=== PATIENT | male | born 1990 | race Two or more races ===

== ENCOUNTER 2024-05-23 14:19 | Emergency (ER) | payer MEDICAID, SELFPAY ==
[2024-05-23] VITALS (9 sets, daily range): BP systolic 133–155; BP diastolic 80–94; PULSE 100–108; RESP 17–34; TEMP 37.1–38; O2SAT 94–98; BMI 36.2; BMI 34.2
--- NOTE | 2024-05-23 14:38 | XR_ITS ---
EXAMINATION: US gall bladder ORDERING PROVIDER: Wali RICE), COLOR COATER HISTORY: pain jaundice TECHNIQUE: Multiplanar still ultrasonography of the right upper quadrant was performed using grayscale imaging, supplemented by color and spectral Doppler as needed. COMPARISON: None. FINDINGS: Liver: Diffusely increased echogenicity. No focal lesions identified. Midclavicular craniocaudad length 21.2 cm. Nodular contour. Gallbladder: No intraluminal filling defect. Gallbladder wall measures up to 5 mm. No pericholecystic fluid. Biliary system: No biliary ductal dilatation. Common bile duct: 0.3 cm. Pancreas: Obscured by bowel gas and poor acoustic windows. Right kidney length: Not well-visualized. Vascular: Hepatofugal portal venous flow. Loss of hepatic venous triphasic waveform. Patent IVC. Other: No ascites or mass. IMPRESSION: 1. Gallbladder wall thickening without cholelithiasis or pericholecystic fluid. Differential includes chronic cholecystitis, sequelae of underlying liver disease, and sequelae of cardiac disease. 2. Enlarged, probably steatotic, cirrhotic liver with reversal of portal venous flow and dampening of hepatic venous waveforms.
--- NOTE | 2024-05-23 14:39 | PD.EDRME ---
Rapid Medical Screening Exam RME Arrival date/time: 05/23/24 14:19 34-year-old male presents to the emergency department today with complaints of being jaundice patient does admit to drinking alcohol heavily Chief Complaint: Extremity Problem,Nontraumatic Vital signs: Vital Signs Temperature 99.2 F 05/23/24 14:33 Pulse Rate 106 H 05/23/24 14:33 Respiratory Rate 22 H 05/23/24 14:33 Blood Pressure 152/91 H 05/23/24 14:33 Pulse Oximetry (%) 96 05/23/24 14:33 Oxygen Delivery Method Room Air 05/23/24 14:33
[2024-05-23 16:01] LABS: Basophils # (Auto) 0.1 Thou/mm3 (0.0-0.2); Basophils % (Auto) 1 % (0-2.5); Eosinophils # (Auto) 0.2 Thou/mm3 (0.0-0.5); Eosinophils % (Auto) 1 % (0-10); Hematocrit 31.8 % (41.0-53.0); Hemoglobin 11.6 g/dL (13.5-16.0); Immature Granulocytes % (Auto) 2 % (0-0); Immature Granulocytes Auto 0.48 Thou/mm3 (0.00-0.00); Lymphocytes # (Auto) 1.2 Thou/mm3 (1.0-4.8); Lymphocytes % (Auto) 5 % (10-50); Mean Corpuscular HGB Conc 36.5 g/dl (31.0-37.0); Mean Corpuscular Hemoglobin 37.8 pg (25.0-35.0); Mean Corpuscular Volume 104 fL (80-100); Monocytes # (Auto) 1.3 Thou/mm3 (0.0-0.8); Monocytes % (Auto) 6 % (0-12); Neutrophils # (Auto) 19.6 Thou/mm3 (1.8-7.7); Neutrophils % (Auto) 86 % (37-80); Nucleated Red Blood Cell # 0.03 Thou/mm3 (0.00-0.00); Nucleated Red Blood Cell % 0 /100 WBC (0); Platelet Count 258 Thou/mm3 (140-440); RDW Standard Deviation 93.4 fL (35.1-43.9); Red Blood Count 3.07 Miln/mm3 (4.50-5.90); White Blood Count 22.9 Thou/mm3 (3.8-10.6)
[2024-05-23 16:27] LABS: Ammonia 28 uMol/L (11-32)
[2024-05-23 16:36] LABS: INR 1.9 (0.9-1.3); Partial Thromboplastin Time 40.7 Seconds (22.0-36.0); Prothrombin Time 19.8 Seconds (9.0-12.2)
[2024-05-23 16:52] LABS: Alanine Aminotransferase 45 U/L (10-49); Albumin, Serum 2.8 gm/dL (3.5-5.0); Albumin/Globulin Ratio 0.5 (1.2-2.2); Alcohol, Blood Medical < 3.0 mg/dL (0-10.0); Alkaline Phosphatase 327 U/L (46-116); Anion Gap 8 (7-16); Aspartate Amino Transferase 208 U/L (0-34); BUN/Creatinine Ratio 8 Ratio (12-20); Blood Urea Nitrogen 8 mg/dL (9-23); Carbon Dioxide 25.3 mMol/L (20.0-31.0); Chloride 97 mMol/L (98-107); Estimated Creatinine Clearance 134.6 mL/min (>60); Glucose 118 mg/dL (74-106); Lipase 70 U/L (12-53); Osmolality,Calculated 260 (275-295); Potassium 3.1 mMol/L (3.4-5.1); Sodium 130 mMol/L (136-145); Total Protein 8.8 gm/dL (5.7-8.2); eGFR > 60 See Note
[2024-05-23 16:54] LABS: Bilirubin,Total 26.5 mg/dL (0.3-1.2)
[2024-05-23 18:43] LABS: Collection Type, Urine Clean Catch; Squamous Epithelial Cell,Urine 0 /hpf (0-5)
[2024-05-23 18:59] LABS: Amorphous Crystals,Urine Present (Absent); Bilirubin,Urine 4+ (Negative); Blood,Urine Negative (Negative); Clarity,Urine Turbid (Clear/Hazy); Color,Urine Drk-Yellow (Lt Yel-Yel); Culture Indicated,Urine Not Indicated; Glucose, Urine Negative (Negative); Ketones,Urine Negative (Negative); Leukocyte Esterase,Urine Negative (Negative); Nitrite,Urine Negative (Negative); PH,Urine 6.5 (5.0-7.0); Protein,Urine Negative (Neg - Trace); RBC,Urine 2 /hpf (0-3); Specific Gravity,Urine 1.015 (1.001-1.035); Urobilinogen,Urine Negative mg/dL (0.0-1.0); WBC,Urine < 1 /hpf (0-5)
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
[2024-05-23 20:38] LABS: Amphetamine/Methamp Scrn,U Negative (Negative); Barbiturate Screen,Urine Negative (Negative); Benzodiazepines Screen,Urine Negative (Negative); Benzoylecgonine Screen, Ur Negative (Negative); Fentanyl Screen,Urine Negative (Negative); Opiate Screen,Urine Negative (Negative); THC Screen,Urine Negative (Negative)
[2024-05-23] MEDS: SODIUM CHLORIDE 0.9% 3341 ML IV (20:48)
[2024-05-23 20:56] LABS: Lactate (Lactic Acid) 1.8 mMol/L (0.4-2.0)
[2024-05-23] MEDS: PIPER/TAZO INJ 3.375 GM in SODIUM CHLORIDE 0.9% (Popper) 50 ML IV (21:17)
--- NOTE | 2024-05-23 21:22 | XR_ITS ---
Examination: CT abdomen with intravenous contrast CT pelvis with intravenous contrast 2-D coronal reconstructions 2-D sagittal reconstructions Date and time of exam:June 02, 2024 11:48 PM Indications: Constipation abdominal pain 2 weeks. CTDI: vol (mGy) 10.7 DLP: (mGycm) 7 Technique: Multiple axial sections of the abdomen and pelvis have been obtained. 64 slice high-resolution scanner used. 3 mm axial sections have been obtained, post intravenous injection 60 cc [id number] 2-D sagittal, coronal reconstructions obtained. Low dose protocols were performed. One or more of the following dose reduction techniques were used; automated exposure control, adjustment of the mA and/or KV according to patient size, use of iterative reconstruction technique. Findings: Cirrhosis, liver nodular in contour, enlarged with diffuse fatty infiltration Multiple liver lesions including 8 cm mass in the caudate lobe Prominent splenomegaly Gallbladder wall appears thickened Mild ascites No pancreatic mass Portosystemic collaterals medial to the spleen No hydronephrosis Diffuse wall thickening: Small bowel No bowel obstruction Bladder intact Fat-containing inguinal hernias Impression: Cirrhosis, multiple liver lesions Recommend MRI abdomen liver follow-up to confirm hepatic neoplastic lesions Prominent splenomegaly Hepatic colopathy enteropathy Recommend gallbladder sonography follow-up
--- NOTE | 2024-05-23 21:25 | XR_ITS ---
Examination: AP chest single view Technique: AP portable upright chest single view Exam date and time: May 23, 20242030 hrs. Indications: Shortness of breath today. Findings: Mild enlargement cardiac contour Mild vascular congestion. No lobar pneumonia or pulmonary edema Impression: Mild vascular congestion
[2024-05-23 21:27] LABS: Procalcitonin 0.56 ng/ml (0.0-0.49)
[2024-05-23] MEDS: IBUPROFEN TAB 400 MG TABLET PO (21:32)
[2024-05-23 21:48] LABS: Creatine Kinase 39 U/L (34-171)
[2024-05-23 22:06] LABS: Basophils # (Auto) 0.2 Thou/mm3 (0.0-0.2); Basophils % (Auto) 1 % (0-2.5); Eosinophils # (Auto) 0.2 Thou/mm3 (0.0-0.5); Eosinophils % (Auto) 1 % (0-10); Hematocrit 29.9 % (41.0-53.0); Immature Granulocytes % (Auto) 2 % (0-0); Immature Granulocytes Auto 0.53 Thou/mm3 (0.00-0.00); Lymphocytes # (Auto) 1.7 Thou/mm3 (1.0-4.8); Lymphocytes % (Auto) 7 % (10-50); Mean Corpuscular HGB Conc 36.8 g/dl (31.0-37.0); Mean Corpuscular Hemoglobin 37.9 pg (25.0-35.0); Mean Corpuscular Volume 103 fL (80-100); Monocytes # (Auto) 1.5 Thou/mm3 (0.0-0.8); Monocytes % (Auto) 6 % (0-12); Neutrophils # (Auto) 19.7 Thou/mm3 (1.8-7.7); Neutrophils % (Auto) 83 % (37-80); Nucleated Red Blood Cell # 0.04 Thou/mm3 (0.00-0.00); Nucleated Red Blood Cell % 0 /100 WBC (0); Platelet Count 241 Thou/mm3 (140-440); RDW Standard Deviation 91.5 fL (35.1-43.9); White Blood Count 23.9 Thou/mm3 (3.8-10.6)
[2024-05-23 22:08] LABS: Hepatitis A Antibody IgM Non Reactive (Non React); Hepatitis B Core Antibody IgM Non Reactive (Non React); Hepatitis B Surface Antigen Non Reactive (Non React); Hepatitis C Antibody Non Reactive (Non React)
[2024-05-23 22:18] LABS: Alanine Aminotransferase 45 U/L (10-49); Albumin, Serum 2.7 gm/dL (3.5-5.0); Albumin/Globulin Ratio 0.5 (1.2-2.2); Alkaline Phosphatase 309 U/L (46-116); Anion Gap 9 (7-16); Aspartate Amino Transferase 191 U/L (0-34); BUN/Creatinine Ratio 8 Ratio (12-20); Bilirubin,Direct 18.3 mg/dL (0.0-0.3); Blood Urea Nitrogen 8 mg/dL (9-23); Calcium 7.8 mg/dL (8.3-10.6); Calcium (Corrected) 8.8 mg/dL (8.5-10.1); Chloride 97 mMol/L (98-107); Estimated Creatinine Clearance 134.6 mL/min (>60); Globulin 5.9 gm/dL (2.3-3.5); Glucose 96 mg/dL (74-106); Osmolality,Calculated 257 (275-295); Sodium 129 mMol/L (136-145); Total Protein 8.6 gm/dL (5.7-8.2); eGFR > 60 See Note
[2024-05-23] MEDS: POTASSIUM CHLORIDE 20 mEq TABCR 40 MEQ PO (22:57)
[2024-05-23 23:28] LABS: INR 1.9 (0.9-1.3); Partial Thromboplastin Time 44.5 Seconds (22.0-36.0); Prothrombin Time 20.3 Seconds (9.0-12.2)
[2024-05-23 23:43] LABS: Ferritin 432 ng/mL (10.5-307.3); Iron 57 mcg/dL (65-175); Percent Iron Saturation 33 % (20-55); Total Iron Binding Capacity 171 mcg/dL (250-425); Unsaturated Iron Binding 114 (225-295)
[2024-05-24] VITALS (12 sets, daily range): BP systolic 109–142; BP diastolic 70–91; PULSE 84–107; RESP 14–28; TEMP 36.2–36.8; O2SAT 94–99
--- NOTE | 2024-05-24 | XR_ITS ---
Examination: MRI abdomen with intravenous contrast. MRI abdomen without intravenous contrast. Date and time of exam: May 24, 2024 1425 hrs. Indications: Jaundice, abdominal pain this week, cirrhosis, multiple liver lesions on CT abdomen pelvis study today Technique: Multiple axial, sagittal and coronal sections of the abdomen obtained. Transverse images, TR 6020, TE 107. T1 weighted transverse images, TR 582, TE 9.5. T2-weighted sagittal images, TR 4000, TE 105. T2-weighted sagittal images, TR 4000, TE 5. Coronal images, TR 4210, TE 107. Axial and coronal images are obtained post 20 cc intravenous injection, gadolinium. Findings: Liver is irregular in contour with diffuse fatty infiltration Postcontrast images demonstrate multiple poorly defined liver lesions some with rim-like enhancement, including large mass 10 cm in the caudate lobe of the liver Marked splenomegaly No pancreatic or adrenal mass No hydronephrosis Trace ascites Aorta normal size Subcentimeter abdominal lymph nodes Gallbladder wall is mildly thickened Impression: Cirrhosis Multiple liver lesions, the largest in the caudate lobe of the liver, consider hepatic metastases, multifocal primary hepatocellular carcinoma
--- NOTE | 2024-05-24 01:16 | PRELIM_ITS ---
CT scan of the abdomen and pelvis with intravenous contrast (axial sections with sagittal and coronal reformats) May 23, 2024 at 2347 hours Clinical History: Abdominal pain. No prior study is available for comparison. Findings: The lung bases are clear. There is marked hepatomegaly with fatty infiltration of the liver. Multiple hypodense lesions within the liver, largest in the caudate/right lobe measuring 9.3 cm, likely neoplastic. The liver demonstrates a nodular contour, which may represent cirrhosis. Multiple portosystemic collaterals are seen in the upper to mid abdomen and gastroesophageal region. There is mild gallbladder wall thickening with pericholecystic fat stranding. The spleen is markedly enlarged.The pancreas, kidneys and adrenals are unremarkable. No evidence of bowel dilatation. There is underdistension of the colon with submucosal fatty infiltration.The appendix is not visualized. The urinary bladder is unremarkable. There is no free fluid or free air. The osseous structures are unremarkable. Impression: Cirrhosis of liver with portal hypertension and marked splenomegaly. Multiple hypodense lesions within the liver,, largest in the caudate/right lobe measuring 9.3 cm, likely neoplastic. Recommend further evaluation with MRI. Mild gallbladder wall thickening with pericholecystic fat stranding, likely due to chronic liver disease Other findings as described above. Report Electronically Signed By: Campos Sparks 05/24/2024 1:16:04 AM [EST]
[2024-05-24] MEDS: PIPER/TAZO INJ 3.375 GM in SODIUM CHLORIDE 0.9% (Popper) 50 ML IV ×2 (07:19→19:43)
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
--- NOTE | 2024-05-24 07:30 | PC.NURSE ---
report given from shift supervisor melting, Karina rodriguez. pt came in due to abd. pain with distention, jaundice, every day drinker and last drink was 5 days ago. pt had ct scan and labs done and he is pending MRI. sepsis was called and he got the protocol fluids. pt was given abx therapy and is pending transfer for higher level of care. pt is resting on gurney with family at bedside. vss.
--- NOTE | 2024-05-24 08:00 | PC.NURSE ---
pt walked to bathroom and tolerated well.
--- NOTE | 2024-05-24 14:23 | PC.CM ---
Addendum entered by Latoya Avitia RN 05/24/24 18:42: I recieved a call from Talha with [facility] and she requested I fax over the mri from today. I re-faxe it at this time. Addendum entered by Latoya Avitia RN 05/24/24 18:16: I received a call from Kay with the transfer center at [facility]. Kay states their GI doctor Dr. York had accepted patient but they do not have any beds open at this time. they will check bed availability at 9pm and if they have an open bed, they will reach out to us to have their hospitalist speak to our ED doctor. I received a call back from [facility] and Cynthia states the doctor that does EUS procedures is not alterations manager today. She states we can call back tomorrow to see if he is alterations manager. Addendum entered by Latoya Avitia RN 05/24/24 17:33: I pushed over images to [facility]. Addendum entered by Latoya Avitia RN 05/24/24 17:25: I reached out to [facility] and I initiated transfer with Kay transfer nurse. I faxed over information and I will push over images. Addendum entered by Latoya Avitia RN 05/24/24 17:18: I called [facility] to initiate transfer. I spoke to transfer nurse Tacho and she states they do not have EUS services .She states they use [facility]. I will reach out to [facility]. Addendum entered by Latoya Avitia RN 05/24/24 16:50: 1530 Amber with [facility] called me back and she states she spoke to Dr. Batista and he states he is going to cancel transfer. I let her know that transfer is still needed but I would follow up again with Dr. batista. she states she will put a call out to her doctor. Addendum entered by Latoya Avitia RN 05/24/24 14:47: I spoke to Amber from [facility] and she asked me to push over images. Addendum entered by Latoya Avitia RN 05/24/24 14:30: 1130 [facility] called me back and they stated patient need higher level of care. Candida let me know their doctor states patient needs hepatobilliary with EUS. I faxed information to [facility]. Original Note: 3996 I received a referral to transfer patient for GI for biliary stent. I sent referral to [facility].
--- NOTE | 2024-05-24 14:25 | PC.NURSE ---
pt went to MRI via wheelchair.
--- NOTE | 2024-05-24 16:06 | PC.NURSE ---
Pt up to bathroom and tolerated well. ice chips given per .
--- NOTE | 2024-05-24 18:18 | EDNOTE_ITS ---
Emergency Room Addendum <Elena Samson - Last Filed: 05/24/24 22:12> Addendum Narrative: 1800: Care assumed from Dr. Obrien, the previous shift emergency physician. Past medical, surgical, social and family history reviewed. Vitals and home medications reviewed. I will assume the care of the patient at this time. As per Dr. Obrien's note below: Dr. Melchor her artist's representative about this and he recommended this patient be transferred someplace where they have endoscopically ultrasound drainage services. Or EUS drainage services. We do not have those resources here at this hospital I spoke with the Latoya our transfer nurse at approximately 1330 hrs. noted I may be off on that time. And she started working on a transfer for this patient . Please refer to the emergency department record for history and examination from initial visit.? Physical exam by me shows patient under no acute distress at this time. Patient is in no acute distress. Heart rate is 107 with a blood pressure 138/83. Respiratory rate 14. Patient is not febrile and otherwise Does not have a acute abdomen. Patient has been getting Zosyn Q8. 2018: Discussed with Dr. Belle Hernandez, [facility] hospitalist who has accepted the patient for transfer, telemetry bed. 2027: ED nursing documentation was reviewed including triage complaint, associated symptoms, administration of medications, response to therapy and vital signs. Given the history, physical exam, and review of laboratory and imaging studies the patient is determined to be unsafe for discharge and requires higher level of care. For this reason the patient is being transferred to [facility] for further diagnostic tests, treatments, stabilization, and monitored response to therapy. I communicated the history, physical exam, pertinent laboratory and imaging studies to the accepting physician. Electronic copies of all emergency department laboratory testing and imaging studies as well as medications ordered and administered are being sent with the patient. Patient is Stable for Transfer. Reason: Need for EUS biopsy an Services needed: GI Risks Benefits have been explained. Patient accepts transfer. 2030: At this time there is no bed and they will let us know when the bed is available. <Amber Moreno MD - Last Filed: 05/25/24 05:52> Addendum Narrative: 1800: Care assumed from Dr. Obrien, the previous shift emergency physician. Past medical, surgical, social and family history reviewed. Vitals and home medications reviewed. I will assume the care of the patient at this time. As per Dr. Obrien's note below: Dr. Melchor her artist's representative about this and he recommended this patient be transferred someplace where they have endoscopically ultrasound drainage services. Or EUS drainage services. We do not have those resources here at this hospital I spoke with the Latoya our transfer nurse at approximately 1330 hrs. noted I may be off on that time. And she started working on a transfer for this patient . Please refer to the emergency department record for history and examination from initial visit.? Physical exam by me shows patient under no acute distress at this time. Patient is in no acute distress. Heart rate is 107 with a blood pressure 138/83. Respiratory rate 14. Patient is not febrile and otherwise Does not have a acute abdomen. Patient has been getting Zosyn Q8. 2018: Discussed with Dr. Belle Hernandez, [facility] hospitalist who has accepted the patient for transfer, telemetry bed. 2027: ED nursing documentation was reviewed including triage complaint, associated symptoms, administration of medications, response to therapy and vital signs. Given the history, physical exam, and review of laboratory and imaging studies the patient is determined to be unsafe for discharge and requires higher level of care. For this reason the patient is being transferred to [facility] for further diagnostic tests, treatments, stabilization, and monitored response to therapy. I communicated the history, physical exam, pertinent laboratory and imaging studies to the accepting physician. Electronic copies of all emergency department laboratory testing and imaging studies as well as medications ordered and administered are being sent with the patient. Patient is Stable for Transfer. Reason: Need for EUS biopsy an Services needed: GI Risks Benefits have been explained. Patient accepts transfer. 2030: At this time there is no bed and they will let us know when the bed is available, however the patient is excepted. 0300: Patient has not required IV narcotics and is resting comfortably. <Cassie Cohen - Last Filed: 05/25/24 05:39> Addendum Narrative: 1800: Care assumed from Dr. Obrien, the previous shift emergency physician. Past medical, surgical, social and family history reviewed. Vitals and home medications reviewed. I will assume the care of the patient at this time. As per Dr. Obrien's note below: Dr. Melchor her artist's representative about this and he recommended this patient be transferred someplace where they have endoscopically ultrasound drainage services. Or EUS drainage services. We do not have those resources here at [facility] I spoke with the Latoya our transfer nurse at approximately 1330 hrs. noted I may be off on that time. And she started working on a transfer for this patient . Please refer to the emergency department record for history and examination from initial visit.? Physical exam by me shows patient under no acute distress at this time. Patient is in no acute distress. Heart rate is 107 with a blood pressure 138/83. Respiratory rate 14. Patient is not febrile and otherwise Does not have a acute abdomen. Patient has been getting Zosyn Q8. 2018: Discussed with Dr. Belle Hernandez, [facility] hospitalist who has accepted the patient for transfer, telemetry bed. 2027: ED nursing documentation was reviewed including triage complaint, associated symptoms, administration of medications, response to therapy and vital signs. Given the history, physical exam, and review of laboratory and imaging studies the patient is determined to be unsafe for discharge and requires higher level of care. For this reason the patient is being transferred to [facility] for further diagnostic tests, treatments, stabilization, and monitored response to therapy. I communicated the history, physical exam, pertinent laboratory and imaging studies to the accepting physician. Electronic copies of all emergency department laboratory testing and imaging studies as well as medications ordered and administered are being sent with the patient. Patient is Stable for Transfer. Reason: Need for EUS biopsy an Services needed: GI Risks Benefits have been explained. Patient accepts transfer. 2030: At this time there is no bed and they will let us know when the bed is available, however the patient is excepted. 0300: Patient has not required IV narcotics and is resting comfortably. 0600: Care signed out to Dr. Obrien (emergency physician). Past medical, surgical, social and family history reviewed. Vitals and home medications reviewed. Results and treatment plan discussed. They will assume the care of the patient at this time and will follow the patient, pending bed availability at [facility].
[2024-05-25] VITALS (7 sets, daily range): BP systolic 114–136; BP diastolic 64–89; PULSE 92–105; RESP 16–19; TEMP 36.7–37.3; O2SAT 93–99
[2024-05-25] MEDS: PIPER/TAZO INJ 3.375 GM in SODIUM CHLORIDE 0.9% (Popper) 50 ML IV (06:04)
--- NOTE | 2024-05-25 06:54 | PC.NURSE ---
Per transfer Center Pt admitted to [facility] Telemetry awaiting bed availability.
--- NOTE | 2024-05-25 07:34 | PC.NURSE ---
Pt awake, alert, GCS 15 upon assumption of care, denies any pain or discomfort at this time. Reports his last drink was 6 days ago, vss does not appear to be in withdrawal at this time. Call [facility] in reach, will continue w/POC.
--- NOTE | 2024-05-25 09:03 | PC.CM ---
Addendum entered by Latoya Avitia RN 05/25/24 13:12: Patient has been accepted to [facility] on [address] Dr. Benson Grant is the accepting hospitalist. Patient will be going to room 4229B. Number to call and give report is [phone]. I spoke to patient and I had him sign transfer paperwork . I will work on setting up transport. Addendum entered by Latoya Avitia RN 05/25/24 11:58: [facility] Rhina transfer nurse called me back and stated the doctor that does EUS is not available and they declined patient. I Contacted [facility] and they declined patient due to capacity. Addendum entered by Latoya Avitia RN 05/25/24 11:37: I spoke to Dr. Melchor to ask if Dr. Kovacs does EUS. Dr. Melchor states he does do them as outpatient, but he will not see patient in the ED. I called Dr. batista and asked if patient was stable enough to follow up as outpatient with Dr. Kovacs. Dr. Batista states patient is not stable and will need an acute transfer. Addendum entered by Latoya Avitia RN 05/25/24 09:43: 0910 I called [facility] to follow up on transfer request. Rhina states she will reach out to the backshoe person Gi doctor to see if he can do EUS. Original Note: 0842 I spoke to [facility] transfer nurse Kay. She states patient has technically been accepted by Dr. York (GI). She states they are very full so they will not present patient to a hospitalist until they have an open bed. She stated I should continue to try other facilities because it might take awhile for a bed to open up. I will call other facilities.
--- NOTE | 2024-05-25 09:47 | EDNOTE_ITS ---
Emergency Room Addendum <Katie Baron - Last Filed: 05/25/24 09:50> Addendum Narrative: 0600: Care assumed from Dr. Moreno, the previous shift emergency physician. Past medical, surgical, social and family history reviewed. Vitals and home medications reviewed. I will assume the care of the patient at this time, pending bed availability for transfer to [facility] for EUS drainage. Please refer to the emergency department record for history and examination from initial visit.? Patient is comfortable this morning and still receiving Zosyn. Patient is hungry and will be given food. <Socrates Obrien MD - Last Filed: 05/25/24 13:38> Addendum Narrative: 0600: Care assumed from Dr. Moreno, the previous shift emergency physician. Past medical, surgical, social and family history reviewed. Vitals and home medications reviewed. I will assume the care of the patient at this time, pending bed availability for transfer to [facility] for EUS drainage. Please refer to the emergency department record for history and examination from initial visit.? Patient is comfortable this morning and still receiving Zosyn. Patient is hungry and will be given food. At approximately 1230 this afternoon I am informed that a bed has opened up in [place] and the patient will be going by ambulance for EUS drainage. Patient has been comfortable throughout the day he ate without any nausea vomiting and actually feels really good this morning. He had no recurrence of pain after eating
--- NOTE | 2024-05-25 13:29 | PC.NURSE ---
PT AMBULATORY TO BATHROOM AT THIS TIME CONT OF URINE, MOM A BEDSIDE ATTENTIVE TO PT.
[2024-05-25] MEDS: PIPER/TAZO 3.375 GM PREMIX 50 ML IV (15:06)
== END 2024-05-25 16:05 | disposition short-term general hospital (02) ==
PROVIDERS: Emergency Medicine; Nurse Practitioner Primary Care; Student in an Organized Health Care Education/Training Program; Emergency Provider Emergency Medicine
DX: C22.8 Malignant neoplasm of liver, primary, unspecified as to type (principal)
CPT/HCPCS: 36415; 71045; 74177; 74183; 76705; 80053; 80074; 80307; 80320; 81001; 82140; 82248; 82550; 82728; 83540; 83550; 83605; 83690; 84145; 85025; 85610; 85730; 87040; 96365; 96366; 96367; 99285; A4649; A9579; J2543; J7030; J7050; Q9967; Z7610; A9270; G0480